=== PATIENT | female | born 1995 | race African-American/Black ===

== ENCOUNTER 2017-11-28 00:02 | Emergency (ER) | payer MEDICAID ==
[~2017-11-28] VITALS: Ht 162.6 cm; Wt 78.0 kg
[2017-11-28 03:15] VITALS: BP 116/61
== END 2017-11-28 04:19 | disposition home or self-care (01) ==
LOC: ER 00:48
DX: F41.0 Panic disorder [episodic paroxysmal anxiety] (principal); F17.200 Nicotine dependence, unspecified, uncomplicated; F12.10 Cannabis abuse, uncomplicated; Z97.5 Presence of (intrauterine) contraceptive device
CPT/HCPCS: 99284; Z7610